=== PATIENT | male | born 1990 | race Caucasian/White ===

== ENCOUNTER 2025-06-07 06:51 | Emergency (ER) | payer OTHER ==
[~2025-06-07] VITALS: Ht 193 cm; Wt 100.0 kg
[2025-06-07] MEDS ORDERED: LEXAPRO10 MG PO (06:57)
[2025-06-07] MEDS ORDERED: KETOROLAC TROMETHAMINE 15 MG/ML VIAL IM ONE (07:15)
[2025-06-07] MEDS ORDERED: ACETAMINOPHEN 500 MG TAB PO ONE (07:15)
[2025-06-07] MEDS ORDERED: BACTRIM DS TAB1 EACH PO (07:16)
[2025-06-07] MEDS ORDERED: HYDROCODON-ACE1 EA10 PO (07:16)
[2025-06-07 08:00] VITALS: BP 160/107
== END 2025-06-07 08:00 | disposition home or self-care (01) ==
LOC: ED 06:51
DX: J30.9 Allergic rhinitis, unspecified (principal); Z79.899 Other long term (current) drug therapy; Z88.1 Allergy status to other antibiotic agents
CPT/HCPCS: 96372; 99283; A9270; J1885